=== PATIENT | male | born 1995 | race Caucasian/White ===

== ENCOUNTER 2018-04-05 07:48 | Emergency (ER) | payer SELFPAY ==
[~2018-04-05] VITALS: Ht 180.3 cm; Wt 81.8 kg
[2018-04-05 07:50] VITALS: Ht 180.3 cm; Wt 81.8 kg
[2018-04-05 08:31] LABS: BASOPHILS 0.6 % (0-2); EOSINOPHILS 1.7 % (0-7); HEMOGLOBIN 17.5 g/dL (13.5-17.5); IMMATURE GRANULOCYTES 0.1 % (0-5); LYMPHOCYTES 43.2 % (15-50); MCH 30.4 pg (26.0-34.0); MCHC 35.7 g/dL (31.0-37.0); MCV 85.1 fL (80.0-100.0); MEAN PLATELET VOLUME 9.2 fL (7.4-10.4); MONOCYTES 7.7 % (2-11); NEUTROPHILS 46.7 % (40-80); PLATELET COUNT 245 10x3/uL (130-400); RBC 5.76 10x6/uL (4.20-6.10); RDW 13.6 % (11.5-14.5)
[2018-04-05 08:34] LABS: ALBUMIN 3.9 g/dL (3.4-5.0); ALKALINE PHOSPHATASE 72 U/L (46-116); ALT (SGPT) 71 U/L (10-68); BILIRUBIN - TOTAL 0.31 mg/dL (0.2-1.3); CALC OSMOLALITY 280 mosm/kg (275-300); CALCIUM 9.3 mg/dL (8.5-10.1); CARBON DIOXIDE 28.6 mmol/L (21.0-32.0); CHLORIDE - SERUM 104 mmol/L (98-107); CREATININE - SERUM 1.1 mg/dL (0.6-1.3); GLUCOSE 108 mg/dL (74-106); POTASSIUM - SERUM 3.9 mmol/L (3.5-5.1); PROTEIN - SERUM 8.2 g/dL (6.4-8.2); SODIUM 140 mmol/L (136-145); UREA NITROGEN 15 mg/dL (7-18); eGFR NON AFRICAN AMERICAN 90 mL/min (90-120)
[2018-04-05] MEDS ORDERED: AUGMENTIN 875-11 TAB PO (09:31)
[2018-04-05] MEDS ORDERED: FLUTICASONE PRO16 GM NASAL (09:31)
[2018-04-05 09:47] VITALS: BP 121/82
== END 2018-04-05 09:47 | disposition home or self-care (01) ==
LOC: D.ER 07:48
PROVIDERS: Family Medicine
DX: J01.90 Acute sinusitis, unspecified (principal); G43.909 Migraine, unspecified, not intractable, without status migrainosus; R11.2 Nausea with vomiting, unspecified; F17.200 Nicotine dependence, unspecified, uncomplicated

== ENCOUNTER 2018-04-27 10:30 | Emergency (ER) | payer SELFPAY ==
[~2018-04-27] VITALS: Ht 180.3 cm; Wt 86.4 kg
[~2018-04-27 10:30] MED LIST: AUGMENTIN 875-11 TAB PO; FLUTICASONE PRO16 GM NASAL
[2018-04-27 10:33] VITALS: Ht 180.3 cm; Wt 86.4 kg
[2018-04-27 11:07] LABS: APPEARANCE CLEAR (CLEAR); BILIRUBIN NEGATIVE (NEGATIVE); COLOR YELLOW (YELLOW); GLUCOSE NEGATIVE (NEGATIVE); KETONE NEGATIVE (NEGATIVE); NITRITE NEGATIVE (NEGATIVE); PROTEIN NEGATIVE (NEGATIVE); UROBILINOGEN NORMAL (NORMAL)
[2018-04-27 11:09] LABS: BASOPHILS 0.5 % (0-2); EOSINOPHILS 0.8 % (0-7); HEMATOCRIT 48.3 % (42.0-54.0); HEMOGLOBIN 17.1 g/dL (13.5-17.5); IMMATURE GRANULOCYTES 0.2 % (0-5); MCH 29.8 pg (26.0-34.0); MCHC 35.4 g/dL (31.0-37.0); MCV 84.3 fL (80.0-100.0); MONOCYTES 5.9 % (2-11); NEUTROPHILS 58.6 % (40-80); PLATELET COUNT 235 10x3/uL (130-400); RBC 5.73 10x6/uL (4.20-6.10); RDW 13.5 % (11.5-14.5); WBC 6.6 10x3/uL (4.8-10.8)
[2018-04-27 11:20] LABS: ALBUMIN 3.8 g/dL (3.4-5.0); ALKALINE PHOSPHATASE 65 U/L (46-116); ALT (SGPT) 56 U/L (10-68); CALC OSMOLALITY 277 mosm/kg (275-300); CARBON DIOXIDE 28.8 mmol/L (21.0-32.0); CHLORIDE - SERUM 104 mmol/L (98-107); CREATININE - SERUM 0.9 mg/dL (0.6-1.3); GLUCOSE 93 mg/dL (74-106); POTASSIUM - SERUM 3.9 mmol/L (3.5-5.1); PROTEIN - SERUM 7.5 g/dL (6.4-8.2); SODIUM 140 mmol/L (136-145); UREA NITROGEN 10 mg/dL (7-18); eGFR NON AFRICAN AMERICAN > 90 mL/min (90-120)
[2018-04-27 11:24] LABS: AMYLASE - SERUM 36 U/L (25-115); LIPASE 156 U/L (73-393); TROPONIN-I < 0.017 ng/mL (0.000-0.060)
[2018-04-27] MEDS ORDERED: ZANTAC300 MG PO (12:58)
[2018-04-27] MEDS ORDERED: ZOFRAN ODT4 MG/UDTAB PO (12:58)
[2018-04-27] MEDS ORDERED: FLORASTOR250 MG PO (12:59)
[2018-04-27 13:16] VITALS: BP 127/67
== END 2018-04-27 13:16 | disposition home or self-care (01) ==
LOC: D.ER 10:30
PROVIDERS: Family Medicine
DX: R10.13 Epigastric pain (principal); R19.7 Diarrhea, unspecified; F17.200 Nicotine dependence, unspecified, uncomplicated

== ENCOUNTER 2018-05-07 09:59 | Emergency (ER) | payer SELFPAY ==
[~2018-05-07] VITALS: Ht 180.3 cm; Wt 85.9 kg
[~2018-05-07 09:59] MED LIST changes: +FLORASTOR250 MG PO; +ZANTAC300 MG PO; +ZOFRAN ODT4 MG/UDTAB PO
[2018-05-07 10:03] VITALS: Ht 180.3 cm; Wt 85.9 kg
[2018-05-07 10:21] LABS: APPEARANCE CLEAR (CLEAR); BILIRUBIN NEGATIVE (NEGATIVE); COLOR YELLOW (YELLOW); GLUCOSE NEGATIVE (NEGATIVE); NITRITE NEGATIVE (NEGATIVE); SPECIFIC GRAVITY 1.015 (1.005-1.020); UROBILINOGEN NORMAL (NORMAL)
[2018-05-07 10:24] LABS: KETONE LARGE mg/dL (NEGATIVE)
[2018-05-07 10:29] LABS: BACTERIA FEW /hpf (NONE SEEN); EPITHELIAL CELLS OCC /hpf (0-5); MUCUS <1+ /lpf (NONE SEEN); PROTEIN 1+ mg/dL (NEGATIVE); RED CELLS - URINE RARE /hpf (0-5)
[2018-05-07 10:32] LABS: BASOPHILS 0.2 % (0-2); EOSINOPHILS 0.5 % (0-7); HEMATOCRIT 51.8 % (42.0-54.0); HEMOGLOBIN 18.6 g/dL (13.5-17.5); IMMATURE GRANULOCYTES 0.2 % (0-5); LYMPHOCYTES 19.8 % (15-50); MCH 30.2 pg (26.0-34.0); MCHC 35.9 g/dL (31.0-37.0); MCV 84.1 fL (80.0-100.0); MEAN PLATELET VOLUME 9.2 fL (7.4-10.4); MONOCYTES 8.5 % (2-11); NEUTROPHILS 70.8 % (40-80); PLATELET COUNT 205 10x3/uL (130-400); RBC 6.16 10x6/uL (4.20-6.10); RDW 13.4 % (11.5-14.5); WBC 6.3 10x3/uL (4.8-10.8)
[2018-05-07 10:52] LABS: ALBUMIN 4.2 g/dL (3.4-5.0); ALKALINE PHOSPHATASE 78 U/L (46-116); ALT (SGPT) 65 U/L (10-68); BILIRUBIN - TOTAL 1.01 mg/dL (0.2-1.3); CALC OSMOLALITY 277 mosm/kg (275-300); CALCIUM 9.6 mg/dL (8.5-10.1); CARBON DIOXIDE 27.2 mmol/L (21.0-32.0); CHLORIDE - SERUM 100 mmol/L (98-107); GLUCOSE 97 mg/dL (74-106); PROTEIN - SERUM 8.5 g/dL (6.4-8.2); SODIUM 139 mmol/L (136-145); UREA NITROGEN 12 mg/dL (7-18); eGFR NON AFRICAN AMERICAN > 90 mL/min (90-120)
[2018-05-07] MEDS ORDERED: ZOFRAN8 MG PO (11:29)
[2018-05-07 11:55] VITALS: BP 122/82
== END 2018-05-07 11:57 | disposition home or self-care (01) ==
LOC: D.ER 09:59
PROVIDERS: Emergency Medicine
DX: R11.2 Nausea with vomiting, unspecified (principal); R10.9 Unspecified abdominal pain; R19.7 Diarrhea, unspecified; F17.200 Nicotine dependence, unspecified, uncomplicated

== ENCOUNTER 2018-08-10 09:36 | Emergency (ER) | payer SELFPAY ==
[~2018-08-10] VITALS: Ht 180.3 cm; Wt 84.1 kg
[~2018-08-10 09:36] MED LIST changes: +ZOFRAN8 MG PO
[2018-08-10 09:40] VITALS: Ht 180.3 cm; Wt 84.1 kg
[2018-08-10 11:45] VITALS: BP 140/93
== END 2018-08-10 11:44 | disposition home or self-care (01) ==
LOC: D.ER 09:36
PROVIDERS: Family Medicine
DX: J00 Acute nasopharyngitis [common cold] (principal)

== ENCOUNTER 2019-05-09 09:06 | Emergency (ER) | payer SELFPAY ==
[~2019-05-09] VITALS: Ht 180.3 cm; Wt 92.3 kg
[2019-05-09 09:19] VITALS: BP 128/72; Ht 180.3 cm; Wt 92.3 kg
[2019-05-09] MEDS ORDERED: NAPROSYN500 MG PO (10:54)
[2019-05-09] MEDS ORDERED: BACTRIM 400-801 TAB PO (10:54)
== END 2019-05-09 11:08 | disposition home or self-care (01) ==
LOC: D.ER 09:06
DX: L03.317 Cellulitis of buttock (principal); Z72.0 Tobacco use

== ENCOUNTER → 2020-10-23 | Emergency (ER) | payer SELFPAY ==
[~2020-10-23] VITALS: Ht 180.3 cm; Wt 102.1 kg
[~2020-10-23] MED LIST changes: +ALBUTEROL SULF8.5 GM INH; +BACTRIM 400-801 TAB PO; +BACTRIM DS TAB1 EAC1 PO; +GUAIFEN-CODEINE10 ML PO; +NAPROSYN500 MG PO; +ZITHROMAX500 MG PO
[2020-10-23 07:58] VITALS: Ht 180.3 cm; Wt 102.1 kg
[2020-10-23 09:03] LABS: INFLUENZA TYPE A NEGATIVE (NEGATIVE); INFLUENZA TYPE B NEGATIVE (NEGATIVE)
[2020-10-23 10:35] LABS: SARS-CoV-2 ANTIGEN NEGATIVE- SARS-COV-2 (NEGATIVE)
[2020-10-23 11:52] VITALS: BP 138/70
== END | disposition home or self-care (01) ==
LOC: D.ER 07:52
PROVIDERS: Emergency Medicine
DX: J20.9 Acute bronchitis, unspecified (principal); Z72.0 Tobacco use; R06.02 Shortness of breath